=== PATIENT | male | born 1955 | race Caucasian/White ===

== ENCOUNTER 2016-09-06 16:13 | Inpatient (IN) | payer BC ==
[~2016-09-06] VITALS: Ht 175.3 cm; Wt 89.8 kg
[2016-09-06 17:04] LABS: CALCIUM 8.7 mg/dL (8.5-10.1); CARBON DIOXIDE 27.1 mmol/L (21-32); CHLORIDE SERUM 106 mmol/L (98-107); GFR1 > 60 mL/min; GLUCOSE SERUM 88 mg/dL (74-106); POTASSIUM SERUM 5.2 mmol/L (3.5-5.1); SODIUM SERUM 141 mmol/L (136-145)
[2016-09-06 17:09] LABS: ALBUMIN 3.7 g/dL (3.4-5.0); ALKALINE PHOSPHATASE 147 U/L (46-116); ALT/SGPT 45 U/L (16-63); AST/SGOT 44 U/L (15-37); BILIRUBIN TOTAL 0.4 mg/dL (0.20-1.00); TOTAL PROTEIN, SERUM 7.9 g/dL (6.4-8.2)
[2016-09-06] MEDS ORDERED: LOSARTAN POTASS25 M1 PO (17:13)
[2016-09-06 17:35] LABS: BASOPHIL % 0.4 % (0-2); PLATELET COUNT 279 x10^3mcL (130-400); RED CELL DISTRIBUTION WIDTH 14.1 % (11.5-14.5)
[2016-09-06 19:11] VITALS: BP 142/97
[2016-09-06 19:25] LABS: PHOSPHOROUS 3.7 mg/dL (2.5-4.9)
[2016-09-06 19:27] LABS: CHOLESTEROL/HDL RATIO 6.4
[2016-09-06 19:32] LABS: FREE T4 0.88 ng/dL (0.76-1.46); FREE THYROXINE INDEX 1.8 ug/dL (1.4-4.5); T4(THYROXINE) 6.6 ug/dL (4.7-13.3)
[2016-09-06 19:50] LABS: T3 TOTAL 1.15 ng/mL
[2016-09-06 22:10] LABS: microscopic required? NO
[2016-09-06 22:33] LABS: UA SPECIFIC GRAVITY >=1.030 (1.005-1.035); urine erythrocyte NEGATIVE (NEGATIVE)
[2016-09-06 22:39] VITALS: BP 131/88
[2016-09-06 22:47] LABS: AMPHETAMINE QUAL UR NONE DETECTED (NEG <=1000)
[2016-09-07 05:11] LABS: BASOPHIL % 0.3 % (0-2); PLATELET COUNT 233 x10^3mcL (130-400); RED CELL DISTRIBUTION WIDTH 13.9 % (11.5-14.5)
[2016-09-07 05:23] LABS: CALCIUM 8.3 mg/dL (8.5-10.1); CARBON DIOXIDE 30.7 mmol/L (21-32); CHLORIDE SERUM 109 mmol/L (98-107); CREATININE SERUM 1.1 mg/dL (0.7-1.3); GFR1 > 60 mL/min; GLUCOSE SERUM 89 mg/dL (74-106); MAGNESIUM 1.9 mg/dL (1.8-2.4); PHOSPHOROUS 3.6 mg/dL (2.5-4.9); POTASSIUM SERUM 4.3 mmol/L (3.5-5.1); SODIUM SERUM 145 mmol/L (136-145)
[2016-09-07 06:57] VITALS: BP 115/74
[2016-09-07 10:50] VITALS: BP 122/72
[2016-09-07 13:50] VITALS: BP 114/67
[2016-09-07] MEDS ORDERED: PRI20 PO (15:38)
[2016-09-07 16:11] VITALS: BP 114/67
== END 2016-09-07 17:01 | disposition home or self-care (01) | DRG 313 ==
LOC: ED 16:13 → DU 17:30
PROVIDERS: Emergency Medicine; ADMIT Family Medicine
DX: R07.9 Chest pain, unspecified (principal); I67.4 Hypertensive encephalopathy; I10 Essential (primary) hypertension; E78.5 Hyperlipidemia, unspecified; E87.5 Hyperkalemia; D64.9 Anemia, unspecified; E11.9 Type 2 diabetes mellitus without complications; Z82.49 Family history of ischemic heart disease and other diseases of the circulatory system; Z82.3 Family history of stroke
CPT/HCPCS: 80307; 82962; 83880; 84439; G0480; J7030; Q0092

== ENCOUNTER 2019-08-11 13:38 | Inpatient (IN) | payer BC ==
[~2019-08-11] VITALS: Ht 175.3 cm; Wt 90.7 kg
[~2019-08-11 13:38] MED LIST: LOSARTAN POTASS25 M1 PO; PRI20 PO
[2019-08-11 13:55] VITALS: Ht 175.3 cm; Wt 90.7 kg
--- NOTE | 2019-08-11 14:36 | NUR ---
PT AMBULATORY TO ED FOR FURTHER EVALUATION OF "SQUEEZING/PRESSURE" CHEST PAIN;PT HAD CALLED EMS EARLIER THIS DATE FOR EVAL,THEY DID NOT TRANSPORT PT, HE WAS CLEARED BY THEM AND INSTRUCTED TO F/U AT THE LOCAL ED;PT HAS HX OF HTN AND HIGH CHOLESTEROL;PT ALSO HAS HX OF SEVERE SEASONAL ALLERGIES WITH SINUS INFECTION;PT IS CONCERNED WITH DIFF BREATHING AND SOB;PT HAS NO COUGH, JUST UNCOMFORTABLE BREATHING; PT SEEN BY PROVIDER, ORDERS RECD, LABS AND FLU COVID NASAL SWABS COMPLETED; IV ACCESS TO R HAND INITIATED; PT ON MONITOR, [place] [facility]
[2019-08-11 15:13] LABS: BASOPHIL % 0.2 % (0-2); PLATELET COUNT 276 x10^3mcL (130-400); RED CELL DISTRIBUTION WIDTH 14.2 % (11.5-14.5)
[2019-08-11 15:25] LABS: CALCIUM 8.8 mg/dL (8.5-10.1); CARBON DIOXIDE 30.2 mmol/L (21-32); CHLORIDE SERUM 102 mmol/L (98-107); GFR1 > 60 mL/min; GLUCOSE SERUM 102 mg/dL (74-106); POTASSIUM SERUM 4.1 mmol/L (3.5-5.1); SODIUM SERUM 140 mmol/L (136-145)
[2019-08-11 15:29] LABS: ALBUMIN 3.7 g/dL (3.4-5.0); ALKALINE PHOSPHATASE 119 U/L (46-116); ALT/SGPT 38 U/L (16-63); AST/SGOT 29 U/L (15-37); BILIRUBIN TOTAL 0.3 mg/dL (0.20-1.00); LACTIC DEHYDROGENASE (LDH) 179 U/L (100-190); TOTAL PROTEIN, SERUM 7.8 g/dL (6.4-8.2)
--- NOTE | 2019-08-11 15:30 | NUR ---
PT MEDICATED PER ORDER, [facility] [facility], EKG COMPLETED; NO DISTRESS NOTED; WAITING ON FURTHER RESULTS
--- NOTE | 2019-08-11 16:55 | NUR ---
URINE SAMPLE OBTAINED,SENT TO LAB;PT RESTING WELL, HOB ELEVATED IN SEMI FOWLERS, PT [place], NO INCREASE IN WORK OF BREATHING OR C/O LIGHT HEADEDNESS; WAITING ON FURTHER RESULTS
[2019-08-11 16:56] LABS: microscopic required? NO
[2019-08-11 16:57] LABS: CHOLESTEROL/HDL RATIO 7.2
[2019-08-11 17:04] LABS: UA SPECIFIC GRAVITY 1.015 (1.005-1.035); urine erythrocyte NEGATIVE (NEGATIVE)
[2019-08-11 17:14] LABS: AMPHETAMINE QUAL UR NONE DETECTED (See below)
--- NOTE | 2019-08-11 17:29 | NUR ---
PT CHANGED FOR ADMIT,PT HAS NO DISTRESS OR SOB,ABLE TO CHANGE BY SELF;VERBALIZED UNDERSTANDING OF ADMIT;REPORT GIVEN TO MIRANDA @ [id number]
[2019-08-11 18:14] VITALS: BP 138/87
--- NOTE | 2019-08-11 18:22 | NUR ---
RECEIVED PT FROM ER, PT ADMIT FOR CHEST PAIN, PT IS A/O X4, VERBAL RESPONSIVE. LUNG SOUND CLEAR BILATERAL, NO COUGH, NO SOB AT THIS TIME, PO2 96% IN ROOM AIR. PT IS ON TELE 14, NSR, C/O MILD CHEST PAIN 2/10 AT THIS MOMENT, BOWEL SOUND PRESENT ALL 4 QUADRANTS, THERE IS A LARGE HERINA AT MID ABD. DENY ANY PAIN OR N/V, PEDAL PULSE PRESENT BOTH FEET, NO EDEMA, IV AT RIGHT HAND, NO LEAKING, NO INFILTRATION. PT IS CURRENT ON DROPLET PROCATION DUE TO R/O COVID 19, ALL ADLS ASSIST, ALL NEED MET, CALL LIGHT IN REACH, WILL CONTINUE TO MONITOR.
--- NOTE | 2019-08-11 19:31 | NUR ---
PT. SITTING UP IN BED, RECEIVED DINNER TRAY FOR HIM. PT. IS ALERT AND ORIENTED X4. DENIES HEADACHE OR DIZZINESS AT THIS TIME. BREATH SOUNDS CLEAR THROUGHOUT LUNG SILVA, RESP. EVEN. PT. ON ROOM AIR, NO SOB NOTED. DENIES CHESTPAIN. NSR ON TELE 14. NO EDEMA NOTED TO EXTREMITIES. PEDAL PULSES STRONG. ABD. SOFT AND ROUND, ABD. HERNIA NOTED. BOWEL SOUNDS ACTIVE. DENIES ABD. PAIN, DENIES NAUSEA. CALL LIGHT WITHIN REACH.
--- NOTE | 2019-08-12 00:30 | NUR ---
PT. AWAKE, SELF CARE COMPLETED BY PATIENT. PT. BACK TO BED, NO COMPLAINTS AT THIS TIME. CALL LIGHT WITHIN REACH.
[2019-08-12 05:59] VITALS: BP 122/74
--- NOTE | 2019-08-12 07:03 | NUR ---
PT. RESTING COMFORTABLY. NO C/O PAIN THIS AM. REMAINS ON ROOM AIR WITH NO NOTED SOB. IV SITE INTACT. CALL LIGHT WITHIN REACH. WILL ENDORSE PT. CARE TO INCOMING NURSE.
--- NOTE | 2019-08-12 07:50 | NUR ---
RECEIVED PT IN BED A/A/OX4 DENIES SMITH. RESP EVEN AND UNLABORED WITH CLEAR BS BILAT. WITH OCC DRY COUGH. C/O MOD PAIN 5/10 ACROSS LOWER CHEST AREA INCREASED BY COUGHING OR DEEP BREATHING. HR 65 WITH NSR ON TELE. NO EDEMA NOTED WITH IV SL TO RH. ABD SOFT, NONTENDER WITH ACTIVE BS X4. DENIES ANY N/V AT THIS TIME. CALL LIGHT IN REACH NEEDS ATTENDED TO.
[2019-08-12 08:00] VITALS: BP 118/81
[2019-08-12 08:36] LABS: BASOPHIL % 0.3 % (0-2); PLATELET COUNT 271 x10^3mcL (130-400); RED CELL DISTRIBUTION WIDTH 14.2 % (11.5-14.5)
[2019-08-12 08:49] LABS: CARBON DIOXIDE 31.7 mmol/L (21-32); CHLORIDE SERUM 105 mmol/L (98-107); CREATININE SERUM 1.1 mg/dL (0.7-1.3); GFR1 > 60 mL/min; GLUCOSE SERUM 89 mg/dL (74-106); MAGNESIUM 2.2 mg/dL (1.8-2.4); PHOSPHOROUS 2.6 mg/dL (2.5-4.9); POTASSIUM SERUM 4.9 mmol/L (3.5-5.1); SODIUM SERUM 141 mmol/L (136-145)
--- NOTE | 2019-08-12 11:00 | NUR ---
CHECKED IN ON PT PT STATED HE WAS COMFORTABLE DID NOT NEED ANYTHING AT THIS TIME. DENIED ANY PAIN.
--- NOTE | 2019-08-12 12:30 | NUR ---
PT RESTING AT THIS TIME. DENIES ANY PAIN/DISCOMFORT AT THIS TIME. PROVIDED WITH LUNCH TRAY. CALL LIGHT IN REACH NEEDS ATTENDED TO.
[2019-08-12 12:50] VITALS: BP 106/77
--- NOTE | 2019-08-12 15:30 | NUR ---
CHECKED ON PT RESTING AT THIS TIME, DENIES ANY DISCOMFORT. NO NEED FOR PAIN MEDS. CALL LIGHT IN REACH NEEDS ATTENDED TO.
[2019-08-12 17:42] VITALS: BP 131/79
--- NOTE | 2019-08-12 18:23 | NUR ---
PT RESTING AT THIS TIME. DENIES ANY FURTHER EPISODES OF CP SINCE THIS AM. PT VERBALIZED FEELING BETTER. AWAITING COVID19 TEST RESULTS. MAINTAINED DROPPLET PRECAUTIONS. CALL LIGHT IN REACH WITH NEEDS ATTENDED TO AND ANTICIPATED.
--- NOTE | 2019-08-12 19:33 | NUR ---
PT. AWAKE, ALERT, ORIENTED X4. DENIES HEADACHE OR DIZZINESS. NO SOB. PT. ON ROOM AIR. IV SITE HEPLOCKED, INTACT. DENIES ANY CHESTPAIN OR DISCOMFORT. NEW ORDERS TO D/C TELE RECEIVED. PT. REMAINS ON PUI ISOLATION . CALL LIGHT WITHIN REACH.
[2019-08-12 20:41] VITALS: BP 115/58; BP 129/79
--- NOTE | 2019-08-12 21:35 | NUR ---
PT. REQUESTING MEDICATION FOR SLEEP. DR. ESPINOZA MADE AWARE. PRN AMBIEN GIVEN ORDERED.
--- NOTE | 2019-08-12 23:48 | NUR ---
PT. APPEARS TO BE SLEEPING, WITH EYES CLOSED. NO COMPLAINTS OF CHESTPAIN THUS FAR. NO RESP. DISTRESS. CALL LIGHT REMAINS WITHIN REACH.
[2019-08-13 05:59] VITALS: BP 115/67
[2019-08-13 06:16] LABS: BASOPHIL % 0.4 % (0-2); PLATELET COUNT 249 x10^3mcL (130-400); RED CELL DISTRIBUTION WIDTH 14.2 % (11.5-14.5)
[2019-08-13 06:27] LABS: CALCIUM 9.1 mg/dL (8.5-10.1); CARBON DIOXIDE 31.4 mmol/L (21-32); CHLORIDE SERUM 104 mmol/L (98-107); CREATININE SERUM 1.1 mg/dL (0.7-1.3); GFR1 > 60 mL/min; GLUCOSE SERUM 92 mg/dL (74-106); MAGNESIUM 2.2 mg/dL (1.8-2.4); PHOSPHOROUS 2.8 mg/dL (2.5-4.9); SODIUM SERUM 140 mmol/L (136-145)
--- NOTE | 2019-08-13 06:34 | NUR ---
PT. SLWPT WELL THROUGHOUT THE NIGHT. NO C/O CHESTPAIN. NO FEVER AR RESP. DISTRESS. IV SITE REMAINS INTACT. CALL LIGHT WITHIN REACH. WILL ENDORSE PT. CARE TO INCOMING NURSE.
--- NOTE | 2019-08-13 07:21 | NUR ---
PT LYING IN BED A/A. BREATHING EQUAL/UNLABORED ON RA. NO ACUTE PAIN/DISTRESS. IV SITE WNL. BED IN LOW POSITION, CALL LIGHT IN REACH, SAFETY PRECAUTIONS IN PLACE. WILL CONTINUE TO MONITOR
[2019-08-13 08:45] VITALS: BP 137/85
[2019-08-13] MEDS ORDERED: LIPI10 PO (10:47)
[2019-08-13] MEDS ORDERED: ZES10 PO (10:48)
[2019-08-13] MEDS ORDERED: VENTOLIN H0.09 MG/A1 INH (10:48)
[2019-08-13] MEDS ORDERED: ECO81 PO (10:48)
[2019-08-13] MEDS ORDERED: ATRINH INH (10:49)
[2019-08-13 11:22] VITALS: BP 137/85
--- NOTE | 2019-08-13 12:26 | NUR ---
PT DISCHARGED HOME. PT A/A, BREATHING EQUAL/UNLABORED ON RA, NO ACUTE PAIN/DISTRESS. IV REMOVED WITH CATHETER INTACT, SITE WNL. CHARGE NURSE TONY GOODRICHUSSED DISCHARGE INSTRUCTIONS/EDUCATION, F/U APPT, AND NEW PRESCRIPTIONS WITH PT, PT VERBALIZED UNDERSTANDING. ALL QUESTIONS AND CONCERNS ADDRESSED. PT WALKED DOWN TO LOBBY ACCOMPANIED BY ME. ALL BELONGINGS WITH PT
== END 2019-08-13 12:20 | disposition home or self-care (01) | DRG 203 ==
LOC: ED 13:38 → DU 16:24 → MU 08-13 04:22
PROVIDERS: Emergency Medicine; Family Medicine; ADMIT Internal Medicine
DX: J20.8 Acute bronchitis due to other specified organisms (principal); I10 Essential (primary) hypertension; E78.5 Hyperlipidemia, unspecified; J30.2 Other seasonal allergic rhinitis; Z68.29 Body mass index [BMI] 29.0-29.9, adult; Z86.73 Personal history of transient ischemic attack (TIA), and cerebral infarction without residual deficits; E78.00 Pure hypercholesterolemia, unspecified; Z79.899 Other long term (current) drug therapy; Z82.49 Family history of ischemic heart disease and other diseases of the circulatory system; Z83.3 Family history of diabetes mellitus; Z03.818 Encounter for observation for suspected exposure to other biological agents ruled out
CPT/HCPCS: 83880; 85378; 87804; G0378; J2270; J3535; Q0092; U0002